=== PATIENT | female | born 1995 ===

== ENCOUNTER 2018-05-16 12:49 | Emergency (ER) | payer SELFPAY ==
[2018-05-16 12:57] VITALS: O2SAT 100
[2018-05-16] MEDS ORDERED: Sodium Chloride 0.9% 1,000 ML IV ONE (13:23)
[2018-05-16 13:26] LABS: HCG,QUALITATIVE URINE POSITIVE (NEGATIVE)
[2018-05-16] MEDS ORDERED: Sodium Chloride 0.9% 1,000 ML ONE (13:28)
[2018-05-16 13:32] LABS: SQUAMOUS EPITHIAL 11 /hpf (0-5); URINE BILIRUBIN NEGATIVE (NEGATIVE); URINE BLOOD NEGATIVE (NEGATIVE); URINE CLARITY Hazy (Clear); URINE COLOR Yellow (YELLOW); URINE GLUCOSE (UA) NORMAL (Normal); URINE LEUKOCYTE ESTERASE 3+ Leu/uL (Negative); URINE PROTEIN 1+ mg/dL (NEGATIVE); URINE UROBILINOGEN NORMAL mg/dL (0.2-1.0)
[2018-05-16 13:39] LABS: BASO % 0.5 % (0.0-2.0); EOS % 0.2 % (0.0-4.0); HEMOGLOBIN 11.3 g/dL (11.0-16.0); LYMPH # 1.1 K/uL (1.0-4.3); LYMPH % 13.8 % (20.0-40.0); MEAN CELL VOLUME 85.4 fL (81.0-99.0); MEAN CORPUSCULAR HEMOGLOBIN 29.8 pg (27.0-31.0); MEAN CORPUSCULAR HGB CONC 34.9 g/dL (33.0-37.0); MEAN PLATELET VOLUME 8.2 fL (7.2-11.7); MONO # 0.5 K/uL (0.0-0.8); MONO % 5.8 % (0.0-10.0); NEUT # 6.5 K/uL (1.8-7.0); NEUT % 79.7 % (50.0-75.0); RBC 3.78 Mil/uL (3.80-5.20); RED CELL DISTRIBUTION WIDTH 14.1 % (11.5-14.5); WHITE BLOOD COUNT 8.2 K/uL (4.8-10.8)
--- NOTE | 2018-05-16 13:47 | C.PDOC ---
History Of Present Illness 23 y/o female presents to ED for evaluation of suprapubic abdominal pain associated with nausea for the past week. Notes she missed her menstrual period this month, states she did not take home test. She admits to dysuria. Otherwise, denies vomiting, diarrhea, vaginal discharge, fever, chills, or flank pain. Time Seen by Provider: 05/16/18 13:03 Chief Complaint (Nursing): Female Genitourinary History Per: Patient History/Exam Limitations: no limitations Onset/Duration Of Symptoms: Days Current Symptoms Are (Timing): Still Present Location Of Pain/Discomfort: Suprapubic Radiation Of Pain To:: None Quality Of Discomfort: "Pain" Associated Symptoms: Nausea. denies: Vomiting, Diarrhea, Back Pain, Constipation Exacerbating Factors: None Alleviating Factors: None Recent travel outside of the [place]: No Additional History Per: Patient : 1 Para: 0 Past Medical History Reviewed: Historical Data, Nursing Documentation, Vital Signs Vital Signs: Last Vital Signs Temp 99 F 05/16/18 12:54 Pulse 89 05/16/18 12:54 Resp 20 05/16/18 12:54 BP 109/72 05/16/18 12:54 Pulse Ox 100 05/16/18 12:54 Family History: States: Unknown Family Hx - Social History Hx Alcohol Use: No Hx Substance Use: No - Immunization History Hx Tetanus Toxoid Vaccination: No Hx Influenza Vaccination: No Hx Pneumococcal Vaccination: No Review Of Systems Except As Marked, All Systems Reviewed And Found Negative. Constitutional: Negative for: Fever, Chills Cardiovascular: Negative for: Chest Pain Respiratory: Negative for: Shortness of Breath Gastrointestinal: Positive for: Nausea, Abdominal Pain. Negative for: Vomiting, Diarrhea Genitourinary: Positive for: Dysuria. Negative for: Frequency, Hematuria, Vaginal Discharge Musculoskeletal: Negative for: Back Pain Physical Exam - Physical Exam Appears: Non-toxic, No Acute Distress Skin: Normal Color, Warm, Dry Head: Normacephalic Eye(s): bilateral: Normal Inspection Oral Mucosa: Moist Neck: Normal ROM, Supple Cardiovascular: Rhythm Regular, No Murmur Respiratory: Normal Breath Sounds, No Rales, No Rhonchi, No Wheezing Gastrointestinal/Abdominal: Soft, Tenderness (suprapubic), No Guarding, No Rebound Back: No CVA Tenderness Extremity: Normal ROM Neurological/Psych: Oriented x3, Normal Speech ED Course And Treatment - Laboratory Results Result Diagrams: 05/16/18 13:32 05/16/18 13:32 O2 Sat by Pulse Oximetry: 100 (RA) Pulse Ox Interpretation: Normal - CT Scan/US transvaginal us Other Rad Studies (CT/US): Read By Radiologist, Radiology Report Reviewed CT/US Interpretation: Accession No. : [id number]. Patient Name / ID : PHANI MCCLOUD / [id number]. Exam Date : 05/16/2018 14:39:25 ( Approved ). Study Comment : Sex / Age : F / 23Y. Creator : Nik Hassan MD. Dictator : Nik Hassan MD. Automation Test Engineer : Director Child Development [facility] : Nik Hassan MD. Approver2 : Report Date : 05/16/2018 16:12:36. My Comment : . Date of service: 05/16/2018. PROCEDURE: OB Pelvic Ultrasound. HISTORY: pelvic pain, . LMP: 04/10/2018, suggesting 5 week 1 day intrauterine gestation. COMPARISON: None available. FINDINGS: Technique: Transabdominal and transvaginal pelvic ultrasound was performed with longitudinal and transverse images submitted for interpretation. UTERUS: Gestational sac: Single intrauterine gestation. Heart rate: 129 bpm. age (Ultrasound estimated): 7 weeks 0 days based on CRL mean. Justine-gestational hemorrhage: None. Date of delivery (Ultrasound estimated) : 12/31/2018. Uterus measures 11.1 x 5.8 x 7.8 cm. Normal in size and appearance. CERVIX: Measures 3.2 cm. Long and closed. No cervical abnormality seen. RIGHT OVARY: Measures 3.9 x 2.6 x 3.2 cm. No mass lesion. Normal flow. A periovarian cyst measures 1.9 x 2.1 x 2.2 cm. There is likely corpus luteum cyst measuring 1.6 x 1.5 x 1.7. LEFT OVARY: Measures 2.2 x 1.2 x 3.1 cm. No solid mass. Normal flow. FREE FLUID: None. OTHER FINDINGS: None. IMPRESSION: Single viable intrauterine gestation with average ultrasonic age 7 weeks 0 days based on CRL and cardiac activity recorded 129 beats per minute. No hemorrhage related to gestation at this time. Right corpus luteum cyst identified. Please see full discussion above. Progress Note: Blood work, urinalysis, OB transvaginal ultrasound ordered and reviewed. Pt was given IV fluids and Tylenol for pain. Disposition Counseled Patient/Family Regarding: Diagnosis, Need For Followup, Rx Given - Disposition Referrals: [facility] [Outside] Disposition: HOME/ ROUTINE Disposition Time: 16:30 Condition: STABLE Additional Instructions: FOLLOW UP WITH [facility] WITHIN 1 WEEK USE MEDICATIONS DIRECTED DRINK PLENTY OF FLUIDS RETURN TO EMERGENCY ROOM IF SYMPTOMS WORSEN SEGUIR CON OB / UNDERWEAR WELTER DENTRO DE 1 SEMANA UTILICE MEDICAMENTOS MOLINA SE DIRIGE BEBER MUCHO LQUIDO VUELVA A LA SHANON DE EMERGENCIA SI LOS SNTOMAS SE SHEIKH PROBLEMAS Prescriptions: Nitrofurantoin Macrocrystals [Macrobid] 1 cap PO BID #14 cap 21/Iron Fu/Folic Acid [ Complete Caplet] 1 each PO DAILY #30 tablet Instructions: Symptoms, Urinary Tract Infection, Adult (DC) Forms: [employer] (Maori) Print Language: PORTUGUESE - Clinical Impression Clinical Impression: , UTI in - Scribe Statement The provider has reviewed the documentation as recorded by the Scribe KP All medical record entries made by the Scribe were at my direction and personall y dictated by me. I have reviewed the chart and agree that the record accurately reflects my personal performance of the history, physical exam, medical decision making, and the department course for this patient. I have also personally directed, reviewed, and agree with the discharge instructions and disposition.
[2018-05-16 14:05] LABS: ALB/GLOB RATIO 1.2 (1.0-2.1); ALBUMIN 4.2 g/dL (3.5-5.0); ALT/SGPT 13 U/L (9-52); AST/SGOT 14 U/L (14-36); BLOOD UREA NITROGEN 8 mg/dL (7-17); CALCIUM 9.9 mg/dl (8.6-10.4); GFR NON-AFRICAN AMERICAN > 60
--- NOTE | 2018-05-16 16:16 | US ---
Date of service: 05/16/2018 PROCEDURE: OB Pelvic Ultrasound HISTORY: pelvic pain, LMP: 04/10/2018, suggesting 5 week 1 day intrauterine gestation COMPARISON: None available. FINDINGS: Technique: Transabdominal and transvaginal pelvic ultrasound was performed with longitudinal and transverse images submitted for interpretation. UTERUS: Gestational sac: Single intrauterine gestation. Heart rate: 129 bpm. age (Ultrasound estimated): 7 weeks 0 days based on CRL mean. Justine-gestational hemorrhage: None. Date of delivery (Ultrasound estimated) : 12/31/2018 Uterus measures 11.1 x 5.8 x 7.8 cm. Normal in size and appearance. CERVIX: Measures 3.2 cm. Long and closed. No cervical abnormality seen. RIGHT OVARY: Measures 3.9 x 2.6 x 3.2 cm. No mass lesion. Normal flow. A periovarian cyst measures 1.9 x 2.1 x 2.2 cm. There is likely corpus luteum cyst measuring 1.6 x 1.5 x 1.7. LEFT OVARY: Measures 2.2 x 1.2 x 3.1 cm. No solid mass. Normal flow. FREE FLUID: None. OTHER FINDINGS: None. IMPRESSION: Single viable intrauterine gestation with average ultrasonic age 7 weeks 0 days based on CRL and cardiac activity recorded 129 beats per minute. No hemorrhage related to gestation at this time. Right corpus luteum cyst identified. Please see full discussion above.
[2018-05-16 17:04] VITALS: BP 111/63; PULSE 80; RESP 16; TEMP 98.2
== END 2018-05-16 17:03 | disposition home or self-care (01) ==
LOC: C.ER 12:49
DX: O23.41 Unspecified infection of urinary tract in pregnancy, first trimester (principal); Z3A.01 Less than 8 weeks gestation of pregnancy
CPT/HCPCS: 76801; 80053; 81001; 84702; 84703; 85025; 86850; 86900; 96360; 99285; J7030